=== PATIENT | male | born 1940 | race Caucasian/White ===

== ENCOUNTER 2016-07-14 06:39 | Inpatient (IN) | payer BC ==
[2016-07-09 09:43] LABS: BASOPHILS 0.6 %; BASOPHILS ABSOLUTE 0.04 10/3/uL (0.0-0.16); EOSINOPHILS 4.2 %; EOSINOPHILS ABSOLUTE 0.28 10/3/uL (0.0-0.53); HEMATOCRIT 40.5 % (40.0-51.0); HEMOGLOBIN 13.9 g/dL (13.6-17.8); IMMATURE GRANULOCYTES 0.3 %; IMMATURE GRANULOCYTES ABSOLUTE 0.02 10/3/uL (0.0-0.11); LYMPHOCYTES ABSOLUTE 1.94 10/3/uL (0.67-4.30); MANUAL DIFF NO %; MEAN CORPUS HGB CONC 34.3 g/dL (32.0-36.0); MEAN CORPUSCULAR HEMOGLOB 30.5 pg (26.0-34.0); MEAN CORPUSCULAR VOLUME 88.8 fL (80-100); MEAN PLATELET VOLUME 10.8 fL (9.2-13.0); MONOCYTES 9.3 %; MONOCYTES ABSOLUTE 0.62 10/3/uL (0.21-1.20); NEUTROPHILS 56.6 %; NEUTROPHILS ABSOLUTE 3.79 10/3/uL (2.02-8.40); PLATELET COUNT 161 10/3/uL (150-400); RBC DISTRIBUTION WIDTH 12.7 % (12.0-16.0); RED CELL COUNT 4.56 10/6/uL (4.7-6.1); WHITE BLOOD CELLS 6.7 10/3/uL (4.5-10.5)
[2016-07-09 09:50] LABS: INTERNATIONAL NORMAL RATI 1.1 UNITS (-)
[2016-07-09 09:52] LABS: PROTIME (NOT ORD) 13.9 SEC (12.0-14.5)
[2016-07-09 10:01] LABS: ALBUMIN 3.8 G/DL (3.5-5.0); ALKALINE PHOSPHATASE 115 U/L (45-117); BUN (BLOOD UREA NITROGEN) 27 MG/DL (6-23); CALCIUM, SERUM 9.5 MG/DL (8.5-10.4); CHLORIDE, SERUM 107 MMOL/L (96-112); CO2 (CARBON DIOXIDE) 25 MMOL/L (24-34); CREATININE 1.12 MG/DL (0.70-1.30); GFR AFRICAN AMERICAN 73 ML/MIN (>=60); GFR NON AFRICAN AMERICAN 63 ML/MIN (>=60); GLOBULIN 3.9 G/DL (2.5-4.1); GLUCOSE, SERUM 109 MG/DL (60-99); POTASSIUM, SERUM 4.1 MMOL/L (3.5-5.3); SGOT(AST) 21 U/L (5-40); SGPT(ALT) 22 U/L (5-65); SODIUM, SERUM 139 MMOL/L (135-148); TOTAL BILIRUBIN 0.5 MG/DL (0-1.2); TOTAL PROTEIN 7.7 G/DL (6.0-8.5)
[2016-07-09 10:51] LABS: ASCORBIC ACID (UR NOT ORDER) 40 (NEG); BILIRUBIN, URINE NEGATIVE (NEG); KETONE, URINE NEGATIVE (NEG); LEUKOCYTE ESTERASE(NOT OR NEG (NEG); WBC (NOT ORDERED) (RFLEX) < 1 (0-5)
--- NOTE | ~2016-07-14 | OP ---
Record Of Operation [facility] [address] [place]. [address] NAME: HODA WYLIE : 38 STATUS : ADM IN PAT#: [id number] AGE: 76 ADM/REG DATE : 07/14/16 MR#: [id number] REPORT SERV DATE: 07/14/16 DICTATED BY: SHIRLEY GRIMES JR. DATE: 07/14/16 REPORT STATUS : Draft TRANSCRIBED BY: MODDipika DATE: 07/14/16 DATE OF PROCEDURE: 07/14/2016 PREOPERATIVE DIAGNOSES: History of prostate cancer, status post prostatectomy, on Lupron, bilateral indeterminate pulmonary nodules, hypercholesterolemia, monoclonal gammopathy of uncertain significance, and increased body mass index. POSTOPERATIVE DIAGNOSES: Probable metastatic prostate cancer, final pathology pending. NAME OF OPERATION: Bronchoscopy, right thoracoscopy with right middle lobe wedge excision for diagnosis, intercostal nerve block. SURGEON: Shirley Grimes M.D. [employer]ISH[employer]ANGE OPERATOR CHIEF: Aamir Sotomayor. RESIDENT SURGEON: Juan Mann MD. FINDINGS: The patient was noted to have no endobronchial lesions. Mucous secretions were evacuated on bronchoscopy. At time of surgery, there was obvious tumor involving the right middle lobe with extensions to the visceral surface. This was wedged out and sent for pathologic evaluation. Least a 1 cm margin was taken. On touch prep, this was definitely an adenocarcinoma with prostate features. On frozen section, we could not rule out a lung primary. Given this was likely a metastatic prostate lesions, it felt that we would stop with the just a wedge excision. There was also a second indeterminate lesion in the left lower lobe. There was no other abnormalities noted. DETAILS OF OPERATION: After adequate general anesthesia, the patient was intubated. A bronchoscopy was performed noting no endobronchial lesions. Left-sided double-lumen endotracheal tube was then placed. The patient was then positioned in the left lateral decubitus position. The right chest was prepped and draped in routine sterile fashion. A small incision was made overlying the lower intercostal space. A separate anterior trocar incision was also made. Through these two incision sites, the above findings were noted. The chest was explored noting the right middle lobe abnormality. This was wedged out using multiple firings of NITIN stapler with tissue reinforcements. The specimen was placed in a specimen bag and brought through the anterior trocar site. An intercostal nerve block was performed with ropivacaine. A 28-Malian chest tube was placed. Remainder of the chest explored noting no other abnormalities. Frozen section confirmed this likely to be metastatic prostate lesion. Decision was made to stop at this point. The lung was reinflated. The trocar incisions were closed with running Vicryl sutures. The skin was closed with running monofilament suture. A Dermabond dressing was applied. The procedure was terminated at this point. The patient tolerated the procedure well and taken back to recovery room in stable condition. Record Of Operation [address] [place]. [address] NAME: HODA WYLIE : 38 STATUS : ADM IN [facility]#: [id number] AGE: 76 ADM/REG DATE : 07/14/16 MR#: [id number] REPORT SERV DATE: 07/14/16 DICTATED BY: SHIRLEY GRIMES JR. DATE: 07/14/16 REPORT STATUS : Draft TRANSCRIBED BY: MIMI DATE: 07/14/16 MARA/MIMI Shirley Grimes Jr., M.D. / [id number] CC: Luis M Jara Jr., M.D. Davey B. Daniel, M.D.
[~2016-07-14 06:39] MED LIST: ACET500CAP PO; ALEVE220 MG PO; ASAB PO; C2; C5; CASODEX 50 MG T50 MG PO; DEPO-TESTOS100 MG/ML IM; DIL2TAB PO; EXCEDRIN MIGRA1 EAC1 PO; FISH OIL1200 MG PO; OXYCON10 PO; PCET PO; PRIN5 PO; PROBIOTIC PO; Uloric PO; VIST25 PO; VITAMIN D31000 UNIT PO; ZOCOR20 PO; [UNRECOGNIZED DRUG - OTHER]
[2016-07-15 06:18] LABS: BASOPHILS 0.1 %; BASOPHILS ABSOLUTE 0.01 10/3/uL (0.0-0.16); EOSINOPHILS 0 %; HEMATOCRIT 38.8 % (40.0-51.0); HEMOGLOBIN 12.9 g/dL (13.6-17.8); IMMATURE GRANULOCYTES 0.3 %; IMMATURE GRANULOCYTES ABSOLUTE 0.04 10/3/uL (0.0-0.11); LYMPHOCYTES 4.8 %; LYMPHOCYTES ABSOLUTE 0.64 10/3/uL (0.67-4.30); MANUAL DIFF NO %; MEAN CORPUS HGB CONC 33.2 g/dL (32.0-36.0); MEAN CORPUSCULAR HEMOGLOB 30.4 pg (26.0-34.0); MEAN CORPUSCULAR VOLUME 91.5 fL (80-100); MEAN PLATELET VOLUME 11.3 fL (9.2-13.0); MONOCYTES ABSOLUTE 0.93 10/3/uL (0.21-1.20); NEUTROPHILS 87.8 %; NEUTROPHILS ABSOLUTE 11.66 10/3/uL (2.02-8.40); PLATELET COUNT 125 10/3/uL (150-400); RBC DISTRIBUTION WIDTH 12.8 % (12.0-16.0); RED CELL COUNT 4.24 10/6/uL (4.7-6.1); WHITE BLOOD CELLS 13.3 10/3/uL (4.5-10.5)
[2016-07-15 06:32] LABS: CHLORIDE, SERUM 105 MMOL/L (96-112); CO2 (CARBON DIOXIDE) 25 MMOL/L (24-34); CREATININE 1.04 MG/DL (0.70-1.30); GFR AFRICAN AMERICAN 80 ML/MIN (>=60); GFR NON AFRICAN AMERICAN 69 ML/MIN (>=60); POTASSIUM, SERUM 4.2 MMOL/L (3.5-5.3); SODIUM, SERUM 141 MMOL/L (135-148)
[2016-07-15 06:33] LABS: BUN (BLOOD UREA NITROGEN) 17 MG/DL (6-23); GLUCOSE, SERUM 131 MG/DL (60-99)
[2016-07-15] MEDS ORDERED: PCET PO (09:38)
[2016-12-10] MEDS ORDERED: ZYTIGA250 MG PO (17:01)
[2016-12-10] MEDS ORDERED: PREDNISONE (17:03)
[2016-12-10] MEDS ORDERED: CALGLUCTAB PO (17:04)
== END 2016-07-15 11:47 | disposition home or self-care (01) | DRG 168 ==
LOC: SDC/OF 06:39 → PACU 11:04 → 5NO 12:56
PROVIDERS: Thoracic Surgery (Cardiothoracic Vascular Surgery)
DX: C78.01 Secondary malignant neoplasm of right lung (principal); D47.2 Monoclonal gammopathy; E78.00 Pure hypercholesterolemia, unspecified; Z85.46 Personal history of malignant neoplasm of prostate; Z79.818 Long term (current) use of other agents affecting estrogen receptors and estrogen levels
CPT/HCPCS: 36415; 71020; 80048; 80053; 81001; 82962; 83036; 85025; 85610; 86850; 86900; 86901; 87641; 88307; 88331; 88341; 88342; 93005; 94640; A9270-GY; J0690; J2250; J2370; J2405; J2710; J2795; J3010; P9045